=== PATIENT | male | born 1975 | race Caucasian/White ===

== ENCOUNTER 2016-09-01 01:31 | Observation (INO) | payer BC ==
[2016-09-01] MEDS ORDERED: ASPIRIN 81 MG TABLET, CHEWABLE PO ONE (01:38)
--- NOTE | 2016-09-01 03:06 | ER Document Report ---
ED General - General Chief Complaint: Chest Pain Stated Complaint: CHEST PAIN Notes: Patient is 41 old male presents with complaint of chest pain. Patient says since morning as mammogram and chest pain. Smiles over the lower portion of his chest. No affect by movement or eating. He says the pain comes and goes. Is a pressure-like sensation in his chest. Is nonradiating. He does have some mild dyspnea associated with it. He doesn't family history of coronary disease. He does have hypertension for which she is on medications. He is not diabetic. He does not have high cholesterol. No other complaints at this time. TRAVEL OUTSIDE OF THE [place] IN LAST 30 DAYS: No Past Medical History - Social History Smoking Status: Unknown if Ever Smoked Frequency of alcohol use: None Drug Abuse: None Family History: Reviewed & Not Pertinent Patient has suicidal ideation: No Patient has homicidal ideation: No - Past Medical History Cardiac Medical History: Reports: Hx Hypertension Renal/ Medical History: Denies: Hx Peritoneal Dialysis - Immunizations Hx Diphtheria, Pertussis, Tetanus Vaccination: Yes Review of Systems - Review of Systems Notes: My Normal Review Basic REVIEW OF SYSTEMS: CONSTITUTIONAL : Denies fever, chills, or sweats. Denies recent illness. EENT: Denies eye, ear, throat, or mouth pain or symptoms. Denies nasal or sinus congestion. CARDIOVASCULAR: In her mid chest pain RESPIRATORY: Denies cough, cold, or chest congestion. Denies shortness of breath, difficulty breathing, or wheezing. GASTROINTESTINAL: Denies abdominal pain. Denies nausea, vomiting, or diarrhea. Denies constipation. Last BM: MUSCULOSKELETAL: Denies neck or back pain or joint pain or swelling. SKIN: Denies rash or skin lesions. NEUROLOGICAL: Denies altered mental status or loss of consciousness. Denies headache. Denies weakness or paralysis or loss of use of either side. Denies problems with gait or speech. Denies sensory or motor loss. ALL OTHER SYSTEMS REVIEWED AND NEGATIVE. Physical Exam - Vital signs Vitals: Temp Pulse Resp BP Pulse Ox 97.1 F 58 L 16 156/95 H 98 09/01/16 01:49 09/01/16 01:49 09/01/16 01:49 09/01/16 01:49 09/01/16 01:49 - Notes Notes: General Appearance: Well nourished, alert, cooperative, no acute distress, no obvious discomfort. Well-appearing. Vitals: reviewed, See vital signs table. Head: no swelling or tenderness to the head Eyes: PERRL, EOMI, Conjuctiva clear Mouth: No decreasd moisture Neck: Supple, no neck tenderness, No thyromegaly Chest wall: No reproducible pain to palpation of chest wall. Lungs: No wheezing, No rales, No rhonci, No accessory muscle use, good air exchange bilaterally. Heart: Normal rate, Regular rythm, No murmur, no rub Abdomen: Normal BS, soft, No rigidity, No abdominal tenderness, No guarding, no rebound, no abdominal masses, no organomegaly Extremities: strength 5/5 in all extremities, good pulses in all extremities, no swelling or tenderness in the extremities, no edema. Skin: warm, dry, appropriate color, no rash Neuro: speech clear, oriented x 3, normal affect, responds appropriately to questions. Course - Vital Signs Vital signs: Temp Pulse Resp BP Pulse Ox 97.1 F 58 L 16 156/95 H 98 09/01/16 01:49 09/01/16 01:49 09/01/16 01:49 09/01/16 01:49 09/01/16 01:49 - Laboratory Result Diagrams: 09/01/16 03:23 09/01/16 03:23 Laboratory results interpreted by me: 09/01/16 09/01/16 03:23 03:23 RBC 5.56 H Total Protein 8.4 H - EKG Interpretation by Me Additional EKG results interpreted by me: 09/01/16 03:05 EKG is reviewed and interpreted by me. EKG shows sinus rhythm with rate of [address] segment elevation or depression. Ischemic T-wave inversions. UT interval, QRS duration, QTC levels are within normal range. No old EKG available for comparison. - Transfer of Care Notes: 09/01/16 04:27 Patient is currently chest pain-free. He does have Nitropaste on. His initial EKG and cardiac enzymes are negative. I concern is that the patient has risk factors including obesity as well as hypertension and strong family history. He is a cardiac workup in the past. This is the first time he has ever had chest pain. I feel it is appropriate to admit him for further workup. I did speak with his private care doctor, Dr. Apodaca, who agrees to admit the patient. Dictation of this chart was performed using voice recognition software; therefore, there may be some unintended grammatical errors. Discharge - Discharge Clinical Impression: Chest pain Qualifiers: Chest pain type: unspecified Qualified Code(s): R07.9 - Chest pain, unspecified Condition: Stable Disposition: ADMITTED OBSERVATION Admitting Provider: Apodaca Unit Admitted: Telemetry
[2016-09-01] MEDS ORDERED: NITROGLYCERIN 2% OINTMENT 1 GM PACKET TP ONE (03:10)
[2016-09-01 03:32] LABS: ABSOLUTE BASOPHILS # (AUTO) 0.1 10^3/uL (0.0-0.2); ABSOLUTE EOSINOPHILS # (AUTO) 0.3 10^3/uL (0.0-0.6); ABSOLUTE LYMPHOCYTES (AUTO) 2.1 10^3/uL (0.5-4.7); ABSOLUTE MONOCYTES (AUTO) 0.7 10^3/uL (0.1-1.4); BASOPHILS % (AUTO) 0.9 % (0-2); EOSINOPHILS % (AUTO) 5.1 % (0-6); HEMATOCRIT 48.1 % (37.9-51.0); HGB HCT DIFFERENCE 2.9; LYMPHOCYTES % (AUTO) 34.1 % (13-45); MEAN CORPUSCULAR HEMOGLOBIN 30.5 pg (27.0-33.4); MEAN CORPUSCULAR HGB CONC 35.3 g/dL (32.0-36.0); MEAN CORPUSCULAR VOLUME 86 fl (80-97); MONOCYTES % (AUTO) 11.2 % (3-13); RED BLOOD COUNT 5.56 10^6/uL (4.35-5.55); RED CELL DISTRIBUTION WIDTH 13.5 % (11.5-14.0); SEGMENTED NEUTROPHILS % (AUTO) 48.7 % (42-78); WHITE BLOOD COUNT 6.2 10^3/uL (4.0-10.5)
[2016-09-01 03:48] LABS: ALANINE AMINOTRANSFERASE 70 U/L (21-72); ALBUMIN 4.8 g/dL (3.5-5.0); ALKALINE PHOSPHATASE 102 U/L (38-126); ANION GAP 12 (5-19); ASPARTATE AMINO TRANSFERASE 52 U/L (17-59); BLOOD UREA NITROGEN 16 mg/dL (7-20); CALCIUM 9.9 mg/dL (8.4-10.2); CARBON DIOXIDE 29 mmol/L (22-30); CHLORIDE 100 mmol/L (98-107); CREATINE KINASE 99 U/L (55-170); CREATININE RESULT 0.88 mg/dL (0.52-1.25); GLUCOSE 97 mg/dL (75-110); POTASSIUM 3.8 mmol/L (3.6-5.0); SODIUM 141.2 mmol/L (137-145); TOTAL PROTEIN 8.4 g/dL (6.3-8.2)
[2016-09-01 04:00] LABS: CREATINE KINASE MB 0.89 ng/mL (<4.55)
[2016-09-01 04:01] LABS: TROPONIN I < 0.012 ng/mL
[2016-09-01] MEDS ORDERED: ACETAMINOPHEN 325 MG TABLET PO PRN (07:12)
[2016-09-01] MEDS ORDERED: LANSOPRAZOLE 15 MG TAB.RAP.DR PO ONE (08:00)
[2016-09-01 08:30] LABS: CREATINE KINASE MB 0.77 ng/mL (<4.55)
--- NOTE | 2016-09-01 08:30 | PDOC H&P ---
History of Present Illness Admission Date/PCP: 09/01/16 07:12 ALISSON HOPKINS MD Patient complains of: Chest pain History of Present Illness: TRINA BAJWA is a 41 year old male This is a 41-year-old male with a history of the hypertensions and morbid obesity and not taking the medication since long time came to the office last week and patient was started the Diovan 80 mg for the blood pressure was 170 range. Patient is not is starting to chest pain in the middle of the chest and a free leg gas since last Wednesday and she he told his about this morning and brought to the emergency department well patient's nitroglycerin and relieved the pain. Patient's denied any shortness of the breath. Patient's denied any nausea no vomiting. Patient's also recently changed his diet as per discussed in the office and start taking the blood pressure medications and the patient's blood present is home is running 140 range and patient's headache is completely resolved. In the emergency department patient's initial EKG and cardiac enzymes are negative and patient's blood pressure is pretty stable and patient Mariely no more chest pain and admitting in the hospital further evaluation and treatment. Past Medical History Cardiac Medical History: Reports: Hypertension Musculoskeltal Medical History: Reports: Other Musculoskeletal History Note: Chronic back pain Social History Smoking Status: Unknown if Ever Smoked Family History Family History: Reviewed & Not Pertinent Parental Family History Reviewed: Yes Children Family History Reviewed: Yes Sibling(s) Family History Reviewed.: Yes Medication/Allergy Allergies/Adverse Reactions: No Known Allergies Allergy (Unverified 09/01/16 05:46) Review of Systems Constitutional: ABSENT: chills, fever(s), headache(s), weight gain, weight loss Eyes: ABSENT: visual disturbances Ears: ABSENT: hearing changes Cardiovascular: PRESENT: chest pain. ABSENT: dyspnea on exertion, edema, orthropnea, palpitations Respiratory: ABSENT: cough, hemoptysis Gastrointestinal: ABSENT: abdominal pain, constipation, diarrhea, hematemesis, hematochezia, nausea, vomiting Genitourinary: ABSENT: dysuria, hematuria Musculoskeletal: ABSENT: joint swelling Integumentary: ABSENT: rash, wounds Neurological: ABSENT: abnormal gait, abnormal speech, confusion, dizziness, focal weakness, syncope Psychiatric: ABSENT: anxiety, depression, homidical ideation, suicidal ideation Endocrine: ABSENT: cold intolerance, heat intolerance, menstrual abnormalities, polydipsia, polyuria Hematologic/Lymphatic: ABSENT: easy bleeding, easy bruising, lymphadenopathy Physical Exam Vital Signs: Temp Pulse Resp BP Pulse Ox 97.1 F 58 L 17 135/88 H 99 09/01/16 01:49 09/01/16 01:49 09/01/16 07:01 09/01/16 07:00 09/01/16 07:01 General appearance: PRESENT: no acute distress, well-developed, well-nourished Head exam: PRESENT: atraumatic, normocephalic Eye exam: PRESENT: conjunctiva pink, EOMI, PERRLA. ABSENT: scleral icterus Ear exam: PRESENT: normal external ear exam Mouth exam: PRESENT: moist, tongue midline Neck exam: PRESENT: full ROM. ABSENT: carotid bruit, JVD, lymphadenopathy, thyromegaly Respiratory exam: PRESENT: clear to auscultation soren Cardiovascular exam: PRESENT: RRR. ABSENT: diastolic murmur, rubs, systolic murmur Pulses: PRESENT: normal dorsalis pedis pul, +2 pedal pulses bilateral Vascular exam: PRESENT: normal capillary refill GI/Abdominal exam: PRESENT: normal bowel sounds, soft. ABSENT: distended, guarding, mass, organolmegaly, rebound, tenderness Rectal exam: PRESENT: deferred Neurological exam: PRESENT: alert, awake, oriented to person, oriented to place , oriented to time, oriented to situation, CN II-XII grossly intact. ABSENT: motor sensory deficit Psychiatric exam: PRESENT: appropriate affect, normal mood. ABSENT: homicidal ideation, suicidal ideation Skin exam: PRESENT: dry, intact, warm. ABSENT: cyanosis, rash Results Laboratory Results: 09/01/16 07:48 Creatine Kinase 81 Impressions: Chest X-Ray 09/01/16 01:38 IMPRESSION: NO ACUTE RADIOGRAPHIC FINDING IN THE CHEST. Assessment & Plan - Diagnosis (1) Chest pain Qualifiers: Chest pain type: unspecified Qualified Code(s): R07.9 - Chest pain, unspecified Is this a current diagnosis for this admission?: YesPlan: We will rule out acute coronary syndromes and consult the cardiology. We also ordered a CT to rule out the other etiology. Start the patient's on the PPI (2) Hypertension Qualifiers: Hypertension type: essential hypertension Qualified Code(s): I10 - Essential (primary) hypertension Is this a current diagnosis for this admission?: YesPlan: Continues the diovan (3) Morbid obesity Qualifiers: Obesity type: unspecified obesity type Qualified Code(s): E66.01 - Morbid (severe) obesity due to excess calories Is this a current diagnosis for this admission?: YesPlan: We will continues the patient's diet and exercise and patient's probably need a sleep study - Time Time Spent: 30 to 50 Minutes Medications reviewed and adjusted accordingly: Yes Anticipated discharge: Home Within: Other - Inpatient Certification Medical Necessity: Need Close Monitoring Due to Risk of Patient Decompensation Post Hospital 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 Discussed with the patient's on the er department and patient about THESE RESULTS AND PLAN
[2016-09-01 08:31] LABS: TROPONIN I < 0.012 ng/mL
[2016-09-01] MEDS ORDERED: ENOXAPARIN SODIUM INJ 40 MG/0.4 ML DISP.SYRIN SUBCUT ONE (11:00)
[2016-09-01] MEDS ORDERED: IBUPROFEN 600 MG TABLET PO PRN (12:32)
[2016-09-01 14:23] LABS: CREATINE KINASE MB 0.78 ng/mL (<4.55)
[2016-09-01 14:29] LABS: TROPONIN I < 0.012 ng/mL
[2016-09-01] MEDS ORDERED: REGADENOSON INJ 0.4 MG/5 ML DISP.SYRIN IV ONE (15:25)
--- NOTE | 2016-09-01 17:28 | EKG REPORT ---
SEVERITY:- NORMAL ECG - SINUS RHYTHM : Confirmed by: Vanessa Lopez MD 01-Sep-2016 17:27:19
--- NOTE | 2016-09-01 18:42 | PDOC CONSULTATION ---
Consultation Consult Date: 09/01/16 Attending physician:: ALISSON HOPKINS Consult reason:: Chest pain History of Present Illness Admission Date/PCP: 09/01/16 07:12 ALISSON HOPKINS MD Patient complains of: Chest pain History of Present Illness: TRINA BAJWA is a 41 year old male with a history of the hypertensions and morbid obesity and not taking the medication since long time came to the office last week and patient was started the Diovan 80 mg for the blood pressure was 170 range. Patient started having chest pain in the middle of the chest intermittent since last Wednesday and she he told his about this morning and brought to the emergency department well patient's nitroglycerin and relieved the pain. Patient's denied any shortness of the breath. Patient' s denied any nausea no vomiting. Patient's also recently changed his diet as per discussed in the office and start taking the blood pressure medications and the patient's blood present is home is running 140 range and patient's headache is completely resolved. In the emergency department patient's initial EKG and cardiac enzymes are negative and patient's blood pressure is pretty stable and patient Mariely no more chest pain and admitting in the hospital further evaluation and treatment. I was asked to evaluate patient as regards chest pain and possible underlying sleep apnea syndrome. 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 Past Medical History Cardiac Medical History: Reports: Hypertension Musculoskeltal Medical History: Reports: Other Past Surgical History Past Surgical History: Reports: None Social History Information Source: Patient Smoking Status: Former Smoker Frequency of Alcohol Use: Social Hx Recreational Drug Use: No Hx Prescription Drug Abuse: No - Advance Directive Resuscitation Status: Full Code Surrogate healthcare decision maker:: Patient's spouse Family History Family History: Reviewed & Not Pertinent Parental Family History Reviewed: Yes Children Family History Reviewed: Yes Sibling(s) Family History Reviewed.: Yes - Negative for premature coronary artery disease or sudden cardiac in the family amongst first degree relatives. Medication/Allergy Home Medications: Valsartan [Diovan 80 mg Tablet] 80 mg PO DAILY 09/01/16 Allergies/Adverse Reactions: No Known Allergies Allergy (Unverified 09/01/16 05:46) Review of Systems Review of Systems: Please see history of present illness and past medical history as wall. Constitutional: No fever or chills reported. Head : No recent chronic headaches, recent head injury. Eyes: No recent eye pain, diplopia, redness, discharge, acute visual changes. Ears: No recent chronic ear pain, acute hearing loss, ear discharge. Oral cavity: No recent ulcerations, bleeding, oral cavity discomfort. Neck: No recent acute neck pain reported. Hematologic: No recent easy bruising or bleeding or hematologic malignancy reported. Lymphatic: No recent lymphatic malignancy, chronic lymphadenopathy reported yet Cardiovascular system review: See history of present illness. Respiratory system review: No recent chronic cough, hemoptysis, blood clots in the lungs reported. Mild Shortness of breath on exertion Gastrointestinal system review: Negative for any recent acute or chronic abdominal pain, hematemesis, melena, recent change in bowel habits. Genitourinary system review: No recent acute or chronic hematuria, flank pain, UTI etc. reported. Skin system review: Negative for any recent abnormal bruising, no rash, no pruritus reported. Neurologic: No prior history of strokes, mini strokes, seizure disorder. Psychologic: No history of major psychosis or major depression reported. Musculoskeletal: Minor aches and pains reported. No acute joint swelling reported. Endocrine: No recent polyuria, polydipsia, recent heat or cold intolerance. Physical Exam Vital Signs: Temp Pulse Resp BP Pulse Ox 97.6 F 65 16 134/74 H 98 09/01/16 12:06 09/01/16 14:00 09/01/16 12:06 09/01/16 12:06 09/01/16 12:06 Intake & Output 08/31/16 09/01/16 09/02/16 06:59 06:59 06:59 Intake Total 2311 Output Total 650 Balance 1661 Weight 133.7 kg Exam: GENERAL: well-nourished and in no acute distress. Alert and oriented x3 HEAD: Atraumatic, normocephalic. EYES: Pupils equal round and reactive to light, extraocular movements intact, sclera anicteric, conjunctiva are normal. ENT: TMs normal, nares patent, oropharynx clear without exudates. Moist mucous membranes. No oral ulcerations or bleeding gums noted NECK: supple without lymphadenopathy. Trachea is central. No cervical or axillary lymphadenopathy noted. Carotids are 2+, JVD WNL LUNGS: Respiration seems nonlabored, no significant accessory muscle action noted. Breath sounds clear to auscultation bilaterally and equal noted. No wheezes rales or rhonchi noted. No significant dullness noted on percussion. CHEST: Palpation of the chest wall shows no significant chest wall tenderness. No other significant abnormalities noted. HEART: [employer], No PSH, 1/6 PUSHPA aortic area, 1/6 champagne systolic murmur mitral area, no rubs, no gallops. ABDOMEN: Soft, no significant tenderness appreciated, normoactive bowel sounds. No guarding, no rebound. No rigidity noted . No masses appreciated. EXTREMITIES: Pedal pulses are 1-2+, no calf tenderness noted. No clubbing or cyanosis.trace to 1+ pedal edema noted NEUROLOGICAL: Focused neurological exam showed no significant neurologic deficit. Normal speech, no focal weakness appreciated. PSYCH: Normal mood, normal affect. Judgment and insight within normal limits. SKIN: No significant ecchymosis, rash, ulcerations or signs of pruritus noted. MUSCULOSKELETAL EXAM: No significant joint swelling noted. Results Laboratory Results: 09/01/16 09/01/16 09/01/16 07:48 07:48 13:47 Creatine Kinase 81 73 CK-MB (CK-2) 0.77 Troponin I < 0.012 09/01/16 13:47 Creatine Kinase CK-MB (CK-2) 0.78 Troponin I < 0.012 EKG Comments: Sinus rhythm, no acute ST-T wave changes are noted Impressions: Chest/Abdomen CTA 09/01/16 00:00 IMPRESSION: NORMAL CTA OF THE CHEST. NO PULMONARY EMBOLI. Chest X-Ray 09/01/16 01:38 IMPRESSION: NO ACUTE RADIOGRAPHIC FINDING IN THE CHEST. Assessment & Plan - Diagnosis (1) Chest pain Qualifiers: Chest pain type: unspecified Qualified Code(s): R07.9 - Chest pain, unspecified Is this a current diagnosis for this admission?: Yes (2) Hypertension Qualifiers: Hypertension type: essential hypertension Qualified Code(s): I10 - Essential (primary) hypertension Is this a current diagnosis for this admission?: Yes (3) Morbid obesity Qualifiers: Obesity type: unspecified obesity type Qualified Code(s): E66.01 - Morbid (severe) obesity due to excess calories Is this a current diagnosis for this admission?: Yes (4) Sleep disorder breathing Is this a current diagnosis for this admission?: Yes - Notes Notes: Chest pain: Patient has some typical and atypical features of chest pain. Cardiac enzymes so far has been negative. Electrocardiogram did not show any definitive ST segment changes. Multiple differential diagnoses exist in this patient. In descending order of probability this includes underlying coronary artery disease, gastroesophageal reflux, musculoskeletal pain, referred pain from elsewhere, anxiety panic disorder etc.Patient has significant cardiac risk factors, which indicates that there is a intermediate probability of chest discomfort coming from underlying CAD. Feel that it would need to be evaluated further. Discussed evaluation to assess this. Nuclear stress test was therefore scheduled. For risk evaluation, patient is also being scheduled for a 2-D echocardiogram. Patient questions were answered. Hypertension: Reasonably well controlled. Blood pressure goal in this patient is 135/85 or less. This was discussed with the patient. Currently blood pressure under reasonable control. Better medication for this patient are ANALIA inhibitor/ARB/beta chandrakant etc. discussed side effects of uncontrolled hypertension and also severe hypotension. Sleep disorder breathing: Based on patient's symptoms, oropharyngeal exam, body habitus, comorbid diagnosis etc., there is high probability of underlying sleep apnea syndrome. Evaluation is recommended for sleep apnea as treatment of this condition if found is likely to benefit patient and reduce patient's future cardiovascular risk. Obesity: Discussed adverse effect of overweight/obesity on cardiovascular event rate, sleep apnea, diabetes and hypertension et cetera. Patient has been recommended weight loss. Patient advised in weight loss. - Time Time Spent: 30 to 50 Minutes Medications reviewed and adjusted accordingly: Yes
[2016-09-01 19:41] LABS: Direct HDL 30 mg/dL (>40); TRIGLYCERIDES 97 mg/dL (<150)
[2016-09-01 19:53] LABS: DIRECT LDL 140 mg/dL (<100)
[2016-09-01 19:57] LABS: TROPONIN I < 0.012 ng/mL
[2016-09-02] MEDS ORDERED: LANSOPRAZOLE 15 MG TAB.RAP.DR PO SCH (06:00)
[2016-09-02] MEDS: LANSOPRAZOLE 30 MG TAB.RAP.DR PO SCH ×2 (06:18→17:30)
[2016-09-02] MEDS ORDERED: ENOXAPARIN SODIUM INJ 40 MG/0.4 ML DISP.SYRIN SUBCUT SCH (08:00)
--- NOTE | 2016-09-02 08:23 | PDOC PROGRESS REPORT ---
Subjective Progress Note for:: 09/02/16 Subjective:: Patient is doing fair patient still feeling like a gas-like pain and is fluctuating from left and right. Patient's also c/o bumping Patient CT angiogram is negative and patient's all cardiac enzyme is negative. Patient scheduled for the stress test today. Patient's denied any headache dizziness shortness of breath denied any nausea. Patient was complains some loose stool. Physical Exam Vital Signs: Temp Pulse Resp BP Pulse Ox 98.4 F 67 19 136/73 H 98 09/02/16 03:39 09/02/16 07:00 09/02/16 03:39 09/02/16 03:39 09/02/16 03:39 Intake & Output 09/01/16 09/02/16 09/03/16 06:59 06:59 06:59 Intake Total 3611 Output Total 650 Balance 2961 Weight 136.5 kg General appearance: PRESENT: no acute distress, well-developed, well-nourished Head exam: PRESENT: atraumatic, normocephalic Eye exam: PRESENT: conjunctiva pink, EOMI, PERRLA. ABSENT: scleral icterus Ear exam: PRESENT: normal external ear exam Mouth exam: PRESENT: moist, tongue midline Neck exam: PRESENT: full ROM. ABSENT: carotid bruit, JVD, lymphadenopathy, thyromegaly Respiratory exam: PRESENT: clear to auscultation soren Cardiovascular exam: PRESENT: RRR. ABSENT: diastolic murmur, rubs, systolic murmur Pulses: PRESENT: normal dorsalis pedis pul, +2 pedal pulses bilateral Vascular exam: PRESENT: normal capillary refill GI/Abdominal exam: PRESENT: normal bowel sounds, soft. ABSENT: distended, guarding, mass, organolmegaly, rebound, tenderness Rectal exam: PRESENT: deferred Neurological exam: PRESENT: alert, awake, oriented to person, oriented to place , oriented to time, oriented to situation, CN II-XII grossly intact. ABSENT: motor sensory deficit Psychiatric exam: PRESENT: appropriate affect, normal mood. ABSENT: homicidal ideation, suicidal ideation Skin exam: PRESENT: dry, intact, warm. ABSENT: cyanosis, rash Results Laboratory Results: 09/01/16 19:10 Triglycerides 97 Cholesterol 192.90 LDL Cholesterol Direct 140 H VLDL Cholesterol 19.0 HDL Cholesterol 30 L 09/01/16 09/01/1609/01/17 07:48 07:48 13:47 Creatine Kinase 81 73 CK-MB (CK-2) 0.77 Troponin I < 0.012 09/01/16 09/01/16 09/01/16 13:47 19:10 19:10 Creatine Kinase 81 CK-MB (CK-2) 0.78 0.70 Troponin I < 0.012 < 0.012 Impressions: Chest/Abdomen CTA 09/01/16 00:00 IMPRESSION: NORMAL CTA OF THE CHEST. NO PULMONARY EMBOLI. Chest X-Ray 09/01/16 01:38 IMPRESSION: NO ACUTE RADIOGRAPHIC FINDING IN THE CHEST. Assessment & Plan - Diagnosis (1) Chest pain Qualifiers: Chest pain type: unspecified Qualified Code(s): R07.9 - Chest pain, unspecified Is this a current diagnosis for this admission?: YesPlan: We will wait for the stress test today most likely a noncardiac will get the ultrasound of the abdomen to rule out any gallstone etiology and start the PPI (2) Hypertension Qualifiers: Hypertension type: essential hypertension Qualified Code(s): I10 - Essential (primary) hypertension Is this a current diagnosis for this admission?: YesPlan: Continues the diovan (3) Morbid obesity Qualifiers: Obesity type: unspecified obesity type Qualified Code(s): E66.01 - Morbid (severe) obesity due to excess calories Is this a current diagnosis for this admission?: YesPlan: We will continues the patient's diet and exercise and patient's probably need a sleep study - Time Time Spent with patient: 15-24 minutes Anticipated discharge: Home Within: Other - Inpatient Certification Medical Necessity: Need Close Monitoring Due to Risk of Patient Decompensation Post Hospital Care: 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
[2016-09-02 16:50] VITALS: BP 136/73
--- NOTE | 2016-09-02 17:10 | PDOC DISCHARGE SUMMARY ---
General - Admit/Disc Date/PCP Admission Date/Primary Care Provider: 09/01/16 07:12 ALISSON HOPKINS MD Discharge Date: 09/02/16 - Discharge Diagnosis (1) Chest pain Is this a current diagnosis for this admission?: YesSummary: Patient's CT angiogram is negative and patient's Cardiolite stress test also negative and ultrasound of the abdomen is negative's most likely is a noncardiac pain discussed with the patient's and the follow outpatients maybe further need a GI workup for possible endoscopy if this continues and symptoms. (2) Hypertension Is this a current diagnosis for this admission?: YesSummary: Stable continues to diovanKeep a blood pressure is 130 range (3) Morbid obesity Is this a current diagnosis for this admission?: YesSummary: Diet and exercise and patients need a sleep study - Additional Information Resuscitation Status: Full Code Discharge Activity: Activity As Tolerated Home Medications: Valsartan [Diovan 80 mg Tablet] 80 mg PO DAILY 09/01/16 Omeprazole 40 mg PO DAILY #30 capsule. 09/02/16 History of Present Illness History of Present Illness: TRINA BAJWA is a 41 year old male This is a 41-year-old male with a history of the hypertensions and morbid obesity and not taking the medication since long time came to the office last week and patient was started the Diovan 80 mg for the blood pressure was 170 range. Patient is not is starting to chest pain in the middle of the chest and a free leg gas since last Wednesday and she he told his about this morning and brought to the emergency department well patient's nitroglycerin and relieved the pain. Patient's denied any shortness of the breath. Patient's denied any nausea no vomiting. Patient's also recently changed his diet as per discussed in the office and start taking the blood pressure medications and the patient's blood present is home is running 140 range and patient's headache is completely resolved. In the emergency department patient's initial EKG and cardiac enzymes are negative and patient's blood pressure is pretty stable and patient Mariely no more chest pain and admitting in the hospital further evaluation and treatment. Hospital Course Hospital Course: This is a 41-year-old male present in the emergency department with the complaint of a chest pain which is awake complained on epigastric left and right patient's initial EKG cardiac enzymes was all negative patient's CT angiogram is also negative and ultrasound did not show any acute finding. Patient's underwent for the Cardiolite stress test per the cardiology and also negative and as discussed with the cardiology patient's discharge home and follow as outpatients. Discussed with the patient's and the family about the patient's all the test result and follow an outpatient in the office in 1 week Physical Exam Vital Signs: Temp Pulse Resp BP Pulse Ox 97.8 F 55 L 14 136/73 H 99 09/02/16 16:48 09/02/16 16:48 09/02/16 16:48 09/02/16 16:48 09/02/16 16:48 Intake & Output 09/01/16 09/02/16 09/03/16 06:59 06:59 06:59 Intake Total 3611 Output Total 650 Balance 2961 Weight 136.5 kg General appearance: PRESENT: no acute distress, well-developed, well-nourished Head exam: PRESENT: atraumatic, normocephalic Eye exam: PRESENT: conjunctiva pink, EOMI, PERRLA. ABSENT: scleral icterus Ear exam: PRESENT: normal external ear exam Mouth exam: PRESENT: moist, tongue midline Neck exam: PRESENT: full ROM. ABSENT: carotid bruit, JVD, lymphadenopathy, thyromegaly Respiratory exam: PRESENT: clear to auscultation soren Cardiovascular exam: PRESENT: RRR. ABSENT: diastolic murmur, rubs, systolic murmur Pulses: PRESENT: normal dorsalis pedis pul, +2 pedal pulses bilateral Vascular exam: PRESENT: normal capillary refill GI/Abdominal exam: PRESENT: normal bowel sounds, soft. ABSENT: distended, guarding, mass, organolmegaly, rebound, tenderness Rectal exam: PRESENT: deferred Neurological exam: PRESENT: alert, awake, oriented to person, oriented to place , oriented to time, oriented to situation, CN II-XII grossly intact. ABSENT: motor sensory deficit Psychiatric exam: PRESENT: appropriate affect, normal mood. ABSENT: homicidal ideation, suicidal ideation Skin exam: PRESENT: dry, intact, warm. ABSENT: cyanosis, rash Results Laboratory Results: 09/01/16 19:10 Triglycerides 97 Cholesterol 192.90 LDL Cholesterol Direct 140 H VLDL Cholesterol 19.0 HDL Cholesterol 30 L 09/01/16 09/01/1609/01/17 07:48 07:48 13:47 Creatine Kinase 81 73 CK-MB (CK-2) 0.77 Troponin I < 0.012 09/01/16 09/01/16 09/01/16 13:47 19:10 19:10 Creatine Kinase 81 CK-MB (CK-2) 0.78 0.70 Troponin I < 0.012 < 0.012 Impressions: Chest/Abdomen CTA 09/01/16 00:00 IMPRESSION: NORMAL CTA OF THE CHEST. NO PULMONARY EMBOLI. Chest X-Ray 09/01/16 01:38 IMPRESSION: NO ACUTE RADIOGRAPHIC FINDING IN THE CHEST. Abdomen Ultrasound 09/02/16 00:00 IMPRESSION: Fatty liver. No gallstones or ultrasound evidence for acute cholecystitis Plan Time Spent: Less than 30 Minutes - Discharge home with the stable conditions with all negative workup and follow as outpatients. Continues to current medications
--- NOTE | 2016-09-02 20:59 | XCELERA REPORT ---
[address] [address] Transthoracic Echocardiogram Report Name: TRINA BAJWA Age: 41 yrs Gender: Male : 1975 Patient Status: Inpatient Patient Location: 4S\S\428\S\A Study Date: 09/02/2016 03:33 PM Height: 72 in Weight: 294 lb BSA: 2.5 m2 Procedure: A complete two-dimensional transthoracic echocardiogram was performed (2D, M-mode, spectral and color flow Doppler). The study was technically difficult with many images being suboptimal in quality. Reason For Study: , CHF Ordering Physician: LINNETTE MCBRIDE Performed By: Khushi Taveras Interpretation Summary The left ventricular ejection fraction is normal. There is borderline concentric left ventricular hypertrophy. The left ventricle is grossly normal size. LV diastolic function could not be adequately assessed. Wall motion cannot be accurately commented on, but no definite regional wall motion abnormalities noted. The right ventricular systolic function is normal. Borderline right ventricular enlargement. Borderline right atrial enlargement. The left atrial size is normal. There is no mitral valve stenosis. There is no mitral regurgitation noted. There is no aortic valve stenosis No aortic regurgitation is present. There is a trace or physiologic amount of tricuspid regurgitation Tricuspid regurgitation jet envelope not well defined to measure RV systolic pressure accurately. There is no pericardial effusion. MMode/2D Measurements \T\ Calculations RVDd: 3.6 cm LVIDd: 5.0 cm FS: 38.7 % Ao root diam: 2.7 cm IVSd: 1.0 cm LVIDs: 3.0 cm EDV(Teich): 116.6 ml LVPWd: 1.0 cm ESV(Teich): 36.3 ml Ao root area: 5.8 cm2 EF(Teich): 68.8 % LA dimension: 3.5 cm Doppler Measurements \T\ Calculations MV E max awilda: MV P1/2t max awilda: Ao V2 max: LV V1 max P.0 cm/sec 75.0 cm/sec 134.1 cm/sec 5.4 mmHg MV A max awilda: MV P1/2t: 78.9 msec Ao max PG: LV V1 max: 61.7 cm/sec 7.2 mmHg 116.0 cm/sec MV E/A: 1.2 MVA(P1/2t): 2.8 cm2 MV dec slope: 278.5 cm/sec2 MV dec time: 0.25 sec PA V2 max: TR max awilda: 74.0 cm/sec 222.6 cm/sec PA max PG: TR max P.8 mmHg 2.2 mmHg Left Ventricle The left ventricle is grossly normal size. There is borderline concentric left ventricular hypertrophy. The left ventricular ejection fraction is normal. LV diastolic function could not be adequately assessed. Wall motion cannot be accurately commented on, but no definite regional wall motion abnormalities noted. Right Ventricle Borderline right ventricular enlargement. There is normal right ventricular wall thickness. The right ventricular systolic function is normal. Atria Borderline right atrial enlargement. The left atrial size is normal. Interarterial septum not well visualized and not well dopplered. Cannot comment on ASD/PFO presence. Mitral Valve The mitral valve is grossly normal. There is no mitral valve stenosis. There is no mitral regurgitation noted. Aortic Valve The aortic valve is not well visualized secondary to technical limitations. There is no aortic valve stenosis. No aortic regurgitation is present. Tricuspid Valve The tricuspid valve is not well visualized secondary to technical limitations. There is no tricuspid stenosis. There is a trace or physiologic amount of tricuspid regurgitation. Tricuspid regurgitation jet envelope not well defined to measure RV systolic pressure accurately. Pulmonic Valve The pulmonic valve is not well visualized. Great Vessels The aortic root is not well visualized but is probably normal size. The inferior vena cava appeared normal and decreased > 50% with respiration (RAP 5-10 mmHg). Effusions There is no pericardial effusion. : LINNETTE MCBRIDE > Linnette Mcbride
--- NOTE | 2016-09-03 09:51 | DRAGON STRESS TEST REPORT ---
INTRAVENOUS LEXISCAN CARDIOLITE STRESS TEST USING SINGLE PHOTON EMMISION COMPUTERIZED TOMOGRAPHIC. DATE OF PROCEDURE: September 02, 2016 INDICATION : Chest pain CARDIAC RISK FACTORS: Hypertension RESTING EKG: Sinus rhythm without any baseline ST-T wave changes STRESS EKG: No significant changes noted with LexiScan bolus REASON FOR TERMINATION: Protocol. PROCEDURE REPORT: Baseline heart rate 50 beats per minute with blood pressure of 143/82. Patient had no significant complaints. Heart rate at 2 minutes post bolus 77 with a blood pressure of 149/74. 3 minutes post bolus heart rate 82 with blood pressure of 142/75. No significant EKG changes were noted. Patient had no significant complaints during the procedure or postprocedure. CONCLUSIONS: Normal EKG and hemodynamic response to IV LexiScan. NUCLEAR DATA: At rest the patient was given 15.9 millicuries of technetium 99 sestamibi injected intravenously. As per protocol rest gated SPECT images were obtained. Subsequently the patient was given intravenous LexiScan at a dose of 0.4 mg in 5 mL intravenously, followed by flush with normal saline. Subsequently the stress dose of 48.1 millicuries of technetium 99 sestamibi was injected intravenously. As per protocol stress gated images were obtained. NUCLEAR INTERPRETATION: Both raw and processed data were used for interpretation. Visual, qualitative, computer-generated quantitative data was used. There was good myocardial uptake of technetium compound. Motion artifact and soft tissue attenuations were noted. Increased visceral uptake was noted. No definitive areas of transient perfusion defect noted. No definitive areas of fixed perfusion defect or scars noted. EKG gated imaging showed LV EF at 52 %, rest and stress gated EF similar visually. T. I D. ratio was 0.97. Lung heart ratio noted to be within normal limits 0.30. No significant extracardiac and abnormal radiotracer activities were noted. RV free wall uptake was noted to be mildly increased. IMPRESSION: Also refer to comments under nuclear interpretation. Also test results needs to be interpreted in the context of pretest probability. 1. There is no definitive scintigraphic evidence of LexiScan induced myocardial ischemia. 2. There is no definitive scintigraphic evidence of myocardial infarction/scar. 3. EKG gated imaging shows left ejection fraction of approximately 52 %. 4. Clinical correlation requested as occasionally single vessel disease or balanced ischemia could be missed. In approximately 10% of the cases Lexiscan may not cause adequate vasodilatory stress. RECOMMENDATIONS: Aggressive risk factor modification, medical therapy. Clinical correlation with echocardiogram derived ejection fraction. Inability to exercise by itself can lead to increased cardiovascular event risks. Consider cardiology consultation and or follow-up if clinically indicated. I AM AVAILABLE FOR CARDIOLOGY CONSULTATION AND FOLLOWUP IF REQUESTED BY PMD Linnette Hidalgo M.D., [facility] [employer] shift supervisor rn, Board certified in cardiovascular diseases, Nuclear cardiology, Echocardiography Cardiac CT and cardiac MRI Ph. [phone] [facility]
--- NOTE | 2016-09-04 10:59 | PDOC PROGRESS REPORT ---
Subjective Progress Note for:: 09/02/16 Subjective:: This is late entry. Patient was seen multiple times. Patient seems to be doing better. Pt is denying any chest arm or neck discomfort. Patient denying any PND, orthopnea. Patient denied any sustained palpitations, dizziness, syncope, near syncope. Patient denying any fever chills. Patient denying any other significant discomfort. Patient is maintaining sinus rhythm. Review of systems: Rest review of systems negative. Medications: Medications have been reviewed. Nuclear stress test procedure was explained to the patient in detail. Risks benefits were discussed and informed consent was obtained. Alternatives were discussed. Patient informed that based on risk factors, physical exam, lab data findings and symptoms there is at least intermediate probability of underlying CAD. Nuclear stress test procedure was therefore scheduled. Physical Exam Vital Signs: Temp Pulse Resp BP Pulse Ox 97.8 F 55 L 14 136/73 H 99 09/02/16 16:48 09/02/16 16:48 09/02/16 16:48 09/02/16 16:48 09/02/16 16:48 Exam: GENERAL: well-nourished and in no acute distress. Alert and oriented x3 HEAD: Atraumatic, normocephalic. EYES: Pupils equal round and reactive to light, extraocular movements intact, sclera anicteric, conjunctiva are normal. ENT: TMs normal, nares patent, oropharynx clear without exudates. Moist mucous membranes. No oral ulcerations or bleeding gums noted NECK: supple without lymphadenopathy. Trachea is central. No cervical or axillary lymphadenopathy noted. Carotids are 2+, JVD WNL LUNGS: Respiration seems nonlabored, no significant accessory muscle action noted. Breath sounds clear to auscultation bilaterally and equal noted. No wheezes rales or rhonchi noted. No significant dullness noted on percussion. CHEST: Palpation of the chest wall shows no significant chest wall tenderness. No other significant abnormalities noted. 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 ABDOMEN: Soft, no significant tenderness appreciated, normoactive bowel sounds. No guarding, no rebound. No rigidity noted . No masses appreciated. EXTREMITIES: Pedal pulses are 1-2+, no calf tenderness noted. No clubbing or cyanosis.trace to 1+ pedal edema noted NEUROLOGICAL: Focused neurological exam showed no significant neurologic deficit. Normal speech, no focal weakness appreciated. PSYCH: Normal mood, normal affect. Judgment and insight within normal limits. SKIN: No significant ecchymosis, rash, ulcerations or signs of pruritus noted. MUSCULOSKELETAL EXAM: No significant joint swelling noted. Results Laboratory Results: 09/01/16 09/01/16 09/01/16 07:48 07:48 13:47 Creatine Kinase 81 73 CK-MB (CK-2) 0.77 Troponin I < 0.012 09/01/16 09/01/16 09/01/16 13:47 19:10 19:10 Creatine Kinase 81 CK-MB (CK-2) 0.78 0.70 Troponin I < 0.012 < 0.012 EKG Comments: Nuclear stress test results discussed, echocardiogram results were discussed. Impressions: Chest/Abdomen CTA 09/01/16 00:00 IMPRESSION: NORMAL CTA OF THE CHEST. NO PULMONARY EMBOLI. Chest X-Ray 09/01/16 01:38 IMPRESSION: NO ACUTE RADIOGRAPHIC FINDING IN THE CHEST. Abdomen Ultrasound 09/02/16 00:00 IMPRESSION: Fatty liver. No gallstones or ultrasound evidence for acute cholecystitis Assessment & Plan - Diagnosis (1) Chest pain Qualifiers: Chest pain type: unspecified Qualified Code(s): R07.9 - Chest pain, unspecified Is this a current diagnosis for this admission?: Yes (2) Hypertension Qualifiers: Hypertension type: essential hypertension Qualified Code(s): I10 - Essential (primary) hypertension Is this a current diagnosis for this admission?: Yes (3) Morbid obesity Qualifiers: Obesity type: unspecified obesity type Qualified Code(s): E66.01 - Morbid (severe) obesity due to excess calories Is this a current diagnosis for this admission?: Yes (4) Sleep disorder breathing Is this a current diagnosis for this admission?: Yes - Notes Notes: Chest pain: Patient claims chest pain is resolved. This was evaluated with a nuclear stress test. Nuclear stress test was negative for any significant areas of ischemia or any significant areas of scar. The nuclear stress test is felt to be relatively low risk. Patient informed that occasionally single- vessel disease and balanced ischemia could be missed. Patient advised aggressive risk factor modification and medical therapy. Patient informed that further evaluation may become necessary if symptoms worsens or there is a development of new symptoms indicative of angina or angina equivalent symptom. Hypertension: Reasonably well controlled. Blood pressure goal in this patient is 135/85 or less. This was discussed with the patient. Currently blood pressure under reasonable control. Better medication for this patient are ANALIA inhibitor/ARB/beta chandrakant etc. discussed side effects of uncontrolled hypertension and also severe hypotension. Sleep disorder breathing: Based on patient's symptoms, oropharyngeal exam, body habitus, comorbid diagnosis etc., there is high probability of underlying sleep apnea syndrome. Evaluation is recommended for sleep apnea as treatment of this condition if found is likely to benefit patient and reduce patient's future cardiovascular risk. Discussed adverse effect of overweight/obesity on cardiovascular event rate, sleep apnea, diabetes and hypertension et cetera. Patient has been recommended weight loss. Patient advised in weight loss. In this regard portion control, substitution, calorie restriction and regular exercise plan discussed. Patient informed that I would be happy to help for outpatient management of weight loss. Risk associated with being overweight and obesity discussed. This included both mechanical and metabolic complications. - Time Time with patient: Greater than 35 minutes - Patient was seen multiple times. Total time exceeds 40 minutes. In the morning nuclear stress test procedure, risks benefits, alternatives were discussed. Patient seen during the stress test. Patient also seen after stress test when results were discussed with the patient in detail. Patient's questions were answered. Nuclear stress test results were discussed with the patient. Patient was informed that no definitive evidence of pharmacologic stress-induced ischemia noted. No definite fixed defects were noted. Patient informed that occasionally significant single vessel disease or balanced ischemia could be missed. However based on the current study results, would recommend aggressive risk factor modification and medical therapy. It may also be worthwhile to consider evaluation or empiric management of other causes of chest pain. Should no other cause be found and if persistent in having chest pain, then cardiac catheterization should be considered. Right now, recommendations are for aggressive risk factor modification and medical management.CODE STATUS was discussed, patient remains full code. Surrogate decision-maker patient's . Multiple medical problems were addressed. Medications reviewed and adjusted accordingly: Yes
== END 2016-09-02 17:00 | disposition home or self-care (01) ==
LOC: ER 01:31 → UNDOADMOB 04:42 → EH 04:42 → 4S 08:59
PROVIDERS: ADMIT Family Medicine; ATTEND Family Medicine
DX: R07.9 Chest pain, unspecified (principal); I10 Essential (primary) hypertension; E66.01 Morbid (severe) obesity due to excess calories; Z87.891 Personal history of nicotine dependence; G47.30 Sleep apnea, unspecified; Z68.39 Body mass index [BMI] 39.0-39.9, adult
CPT/HCPCS: 93005; 99285; 36415; 82553; 82550; 85025; 80053; 84484; 80061; 93306; 93017; 71010; 76705; 78452; 71275; 93010; G0378 ×3; A9500; J2785; J1650; Q9969

== ENCOUNTER → 2020-07-13 | Outpatient (CLI) | payer BC ==
[~2020-07-13] MED LIST: COVID-19 VACCINE (PFIZER)/PF 30 MCG/0.3 ML VIAL IM ONE; EPINEPHRINE INJ/PF 1 MG/1 ML AMPULE IM PRN
--- OUTSIDE RECORDS SUMMARY | 2020-07-16 10:28 | XMS REPORT ---
:1975 Author Organization [facility] [place] [facility] [place] [address] [place] [id number] Care Team Providers Name Role Phone Unavailable Unavailable Unavailable Allergies, Adverse Reactions, Alerts This patient has no known allergies or adverse reactions. Medications This patient has no known medications. Problems This patient has no known problems. Procedures This patient has no known procedures. Results This patient has no known results. Social History This patient has no known social history. Vital Signs This patient has no known vital signs.
== END ==
LOC: EMPHEALTH 14:50
PROVIDERS: ATTEND Internal Medicine
DX: Z23 Encounter for immunization (principal)
CPT/HCPCS: 91300